=== PATIENT | female | born 1950 | race Caucasian/White ===

== ENCOUNTER → 2024-03-31 10:24 | Outpatient (REF) | payer OTHER, SELFPAY | LOC: HWWDC 10:24 | PROVIDERS: ATTENDING PHYSICIAN Family Medicine | DX: Z12.31 Encounter for screening mammogram for malignant neoplasm of breast (principal) | CPT/HCPCS: 77063; 77067 ==

== ENCOUNTER → 2024-08-03 12:27 | Outpatient (REF) | payer OTHER, SELFPAY | LOC: RAD 12:27 | PROVIDERS: ATTENDING PHYSICIAN Family Medicine | DX: M25.512 Pain in left shoulder (principal) | CPT/HCPCS: 73030 ==

== ENCOUNTER → 2024-12-14 10:03 | Outpatient (REF) | payer OTHER, SELFPAY | LOC: RAD 10:03 | PROVIDERS: ATTENDING PHYSICIAN Family Medicine | DX: M25.562 Pain in left knee (principal) | CPT/HCPCS: 73564 ==

== ENCOUNTER → 2025-04-01 08:59 | Outpatient (REF) | payer OTHER, SELFPAY | LOC: HWWDC 08:59 | PROVIDERS: ATTENDING PHYSICIAN Family Medicine | DX: Z12.31 Encounter for screening mammogram for malignant neoplasm of breast (principal) | CPT/HCPCS: 77063; 77067 ==

== ENCOUNTER → 2025-06-23 10:22 | Outpatient (REF) | payer OTHER, SELFPAY | LOC: PAVMRI 10:22 | PROVIDERS: ATTENDING PHYSICIAN Family Medicine | DX: R51.9 Headache, unspecified (principal); R90.89 Other abnormal findings on diagnostic imaging of central nervous system | CPT/HCPCS: 70553; A9575 ==

== ENCOUNTER 2025-06-28 23:56 | Emergency (ER) | payer OTHER, SELFPAY ==
[2025-06-28 23:57] VITALS: BP 192/90
[2025-06-29 00:37] VITALS: BMI 28.9
--- NOTE | 2025-06-29 01:02 | ED.GENMED ---
History of Present Illness
<Nancie Hernandez PA-C - Last Filed: 06/29/25 02:22>
General
Chief Complaint: Facial Problem
Source: patient
Exam Limitations: none
Time Seen by Provider: 06/29/25 00:35
Nursing documentation reviewed up to this point in time: agreed with
History of Present Illness
History of Present Illness:
74-year-old female with past medical history of macular degeneration, cataracts, GERD, hypertension, asthma, presents to ER today with concerns of facial pain and numbness and tingling sensation to the right side of her face for the past few hours.
She has also had right sided eye pain as well. She denies any foreign body. She reports that she was working in the yard earlier but states that there is no eye injury at this time. She describes the pain as burning stinging and feeling like pins
are being poked into her face and eye. She also has a sensation of numbness behind the eye and reports that this extends to the ear on the same side. She has baseline blurry vision with her macular degeneration but states that the past few days,
when she is close to her eye, after 20 minutes, she starts to see black dots but this is only with the eyes closed. She denies any visual field cut. She has had shingles in the past but is also vaccinated against shingles. She took Benadryl with
minimal relief in her symptoms. She reports that cold compresses helped with the pain. She denies any headache,. She has no chest pain or weakness in her body, chest pain, shortness of breath. She denies any flashes of light in her vision or
curtain going down over her vision. She has not had any fevers or chills. She follows with her dance critic every few months for ocular injections.
Past History
<Nancie Hernandez PA-C - Last Filed: 06/29/25 02:22>
Past History
ED Past Medical History: GERD, HTN and Other (Back pain)
ED Past Surgical History: Appendectomy, Gynecological (Hysterectomy), Orthopedic and Other (Hernia repair.)
Social History
Tobacco: Non-smoker
Alcohol: None
Drug: None
Personal:
Living: with family
Employment: Retired
Family History
Family History: Other (Noncontributory)
Review of Systems
<Nancie Hernandez PA-C - Last Filed: 06/29/25 02:22>
Review of Systems
All Other Systems: ROS reviewed and negative except as documented in HPI and ROS
Phy Exam
<CARA Hernandez Last Filed: 06/29/25 02:22>
Physical Exam
Physical Exam:
General: Patient is well appearing and in no acute distress; non-toxic
Skin: Warm and dry, no rashes or lesions
Head: Normocephalic, atraumatic
Eyes: Right sided sclera injection noted with mild periorbital erythema. No dendritic rash. Sclera non-icteric. EOMs intact. Right eye intraocular pressure 17 mmHg. Corneal staining is negative for corneal ulcer/abrasion/dendritic lesions.
Ears: Right auricle non-erythematous free of rash, TM and external auditory canal unremarkable
Cardiac: Regular rate and rhythm, no murmur
Peripheral Vascular: No lower extremity swelling or edema
Pulm: Normal respiratory effort, no wheezes, rales, or rhonchi
Neuro: CN II-XII intact, no focal neurologic deficits. No facial droop. No facial asymmetry. Sensation intact.
Psychiatric: Appropriate mood and affect.
Course
<Nancie Hernandez PA-C - Last Filed: 06/29/25 02:22>
Orders/Labs/Results
Orders:
Orders
06/29/25 00:37
Visual Acuity- Treatment ONCE
06/29/25 01:41
Electrocardiogram (*1) Urgent
Reason for Study: Chest Pain
Electrocardiogram (*1) Urgent
Reason for Study: Chest Pain
Vital Signs
Initial and Last Documented VS:
Initial Vital Signs
Temp Pulse Resp BP Pulse Ox
98.4 F 66 192/90 100
06/28/25 23:57 06/28/25 23:57 06/28/25 23:57 06/28/25 23:57 06/28/25 23:57
Last Documented Vital Signs
Temp Pulse Resp BP Pulse Ox
98.4 F 64 192 97
06/28/25 23:57 06/29/25 01:45 06/29/25 01:45 06/28/25 23:57 06/29/25 01:45
<Blanka Moran DO - Last Filed: 06/29/25 01:58>
Orders/Labs/Results
Orders:
Orders
06/29/25 00:37
Visual Acuity- Treatment ONCE
06/29/25 01:41
Electrocardiogram (*1) Urgent
Reason for Study: Chest Pain
Electrocardiogram (*1) Urgent
Reason for Study: Chest Pain
Vital Signs
Initial and Last Documented VS:
Initial Vital Signs
Temp Pulse Resp BP Pulse Ox
98.4 F 66 192/90 100
06/28/25 23:57 06/28/25 23:57 06/28/25 23:57 06/28/25 23:57 06/28/25 23:57
Last Documented Vital Signs
Temp Pulse Resp BP Pulse Ox
98.4 F 64 192/90 97
06/28/25 23:57 06/29/25 01:45 06/29/25 01:45 06/28/25 23:57 06/29/25 01:45
<Nancie Hernandez PA-C - Last Filed: 06/29/25 02:22>
MDM/Problems Addressed
Differential Diagnosis Includes:
ddx include prodromal shingles, contact dermatitis, bells palsy, TIA/CVA, trigeminal neuralgia
MDM/Problems Addressed:
74-year-old female with past medical history of macular degeneration, cataracts, GERD, hypertension, asthma, presents to ER today with concerns of facial pain and numbness and tingling sensation to the right side of her face for the past few hours.
On physical exam, she is well appearing, in no acute distress, does have smell erythema noted to the right side of her face and periorbital area. No vesicular rash. She does have some scleral erythema noted but her intraocular pressures are normal
and there is no evidence of corneal dendritic lesions. History most concerning for a prodromal shingles presentation. Will start valacyclovir and have her follow-up closely with her family doctor. Of note patient has also had ongoing headaches
none today, as well as that she says in her vision when she is close her eyes that she has been ongoing for 12 months, she had MRI recently and is due to follow-up with her primary regarding findings. Did have episode of chest pain check ECG which
shows no acute ischemic changes. Patient stable for discharge. Patient will follow-up with her dance critic
Chronic conditions affecting care:
migraines, asthma, GERD, htn
<Nancie Hernandez PA-C - Last Filed: 06/29/25 02:22>
*Pulse Oximetry
SaO2: 100
Oxygen Mode of Delivery: Room air
Patient hypoxic: no
*Critical Care Note
Total Time (30-74mins, 75-104mins- exclusive of procedures): Not Applicable
Data Reviewed
Review of Other/Old Records Reveals: Records and Discharge Summary (reviewed discharge summary from 12/03/21 patient seen for diverticulitis)
Source: patient
ED Attending Note
<Nancie Hernandez PA-C - Last Filed: 06/29/25 02:22>
-
Portions of this chart may have been created with voice recognition software.� Occasional wrong word or��sound alike� substitutions may have occurred due to the inherent limitations of voice recognition software.
<Blanka Dean, DO - Last Filed: 06/29/25 01:58>
ED Attending Note
Patient seen and examined by attending physician: Yes
I performed the substantive portion of visit, reviewed & personally made and approve the management plan that is documented in note by myself or PITO.: Yes
I performed a history and physical exam of patient and discussed management with resident, I reviewed resident's note and agree with documented findings and plan of care.: Yes
ED Attending Note:
74-year-old female with history of macular degeneration and cataracts presenting to the emergency department with pain to the right side of her face. Notes symptoms for the past 2 to 3 days. She also reports associated headache. She notes the
pain is burning in quality. Reports history of seeing red and black spots in her eyes, however this has been ongoing, which prompted recent brain MRI on 06/23. Denies any acute visual changes. Denies recent illness. Reports history of herpes
zoster in the past and feels that pain is similar. Also notes on and off chest pain for the past month with indigestion. She has had difficulty getting into see cardiology. Denies active chest pain.
Vital signs on arrival are significant for hypertension. On exam patient is resting comfortably, no acute distress or discomfort. No obvious abnormality to the right side of the face. No rash, no asymmetry. Normal ocular exam as well as ear
exam. Patient's pain sounds consistent with possible prodromal pain from shingles/herpes zoster. I was seen by physician construction management assistant, no dendritic lesions. Patient denying any active visual changes. MRI reviewed from 06/23, some uptake
abnormalities, however appears unchanged from prior MRI. MS seems to be a diagnosis of exclusion so I did discuss results with patient and advised that she follow-up with her primary care doctor. Regarding her present symptoms, we will start her
on Valtrex. Explained that if her rash appears, to either return to the hospital or follow-up with her primary for possible prednisone. Also advised that if ocular symptoms change or she starts to see a rash tracking towards her eye, that she also
return to the hospital. Regarding her intermittent chest pain/indigestion, screening EKG performed, unremarkable. Ultimately feel stable for outpatient cardiology follow-up. Return precautions discussed and patient verbalized understanding
Discharge Plan
Departure
Patient Disposition: Home (Routine Discharge)
Date of Disposition: 06/29/25
Time of Disposition: 02:00
Patient with high blood pressure during this ER visit?: Yes
Condition: Good
Discharge Problem:
Facial paresthesia, Acute right eye pain
Instructions: Neuropathic pain, Shingles, BLOOD PRESSURE
Prescriptions:
New
valacyclovir 500 mg tablet
1,000 mg PO TID 7 Days Qty: 42 0RF
No Action
cetirizine 10 MG tablet
10 mg PO DAILY
Advair Inhaler
2 puff inhalation PRN PRN (Reason: asthma)
albuterol sulfate 2.5 MG/3 ML solution for nebulization
2.5 mg inhalation R Q6HPRN PRN (Reason: SOB/WHEEZING) Qty: 0
Benadryl
2 tab PO PRN PRN (Reason: insomnia)
triamterene-hydrochlorothiazid 1 EACH tablet
1 ea PO DAILY Qty: 0
coenzyme [id number] E [Co Q-10 (with Vit E)] 1 EACH capsule
1 ea PO DAILY
vit C,G-Cf-eehoy-lutein-zeaxan [PreserVision AREDS-2] 1 EACH capsule
1 ea PO BID
albuterol sulfate 1 PUFF HFA aerosol inhaler
1 puff inhalation R Q4HPRN PRN (Reason: SOB/WHEEZING)
acetaminophen 325 MG tablet
650 mg PO Q4HPRN PRN (Reason: mild pain/[place]/temp> 100.4F) 0RF
amoxicillin-pot clavulanate 1 TABLET tablet
1 tab PO Q12 Qty: 16 0RF
Referrals:
Ko Dacosta Jr., DO [Family Provider, Internal Medicine]
Robi Fernandez DO [Active, Cardiology] - Call in 1-3 days for appt
Activity Restrictions/Additional Instructions:
Valacyclovir has been sent to your pharmacy. Please take 1 gram 3 times a day for 7 days.
Please call your dance critic tomorrow to schedule complete ophthalmic exam in the next few days.
Please follow up with your primary regarding the results of your MRI.
PLEASE RETURN TO THE ER SHOULD YOU DEVELOP VISUAL LOSS, VISUAL CHANGES, SHORTNESS OF BREATH, WEAKNESS ON ONE SIDE OF THE BODY VS THE OTHER, SPEECH CHANGES, CONFUSION, FLOATERS, FLASHES OF LIGHT, OR ANY OTHER SIGNS OR SYMPTOMS WORRISOME TO YOU.
Interventions
Interventions:
*Risk Screen - Suicide Last Done: 06/28/25 23:57
*General Assessment Last Done: 06/29/25 00:37
*Neglect/Abuse Screening Last Done: 06/28/25 23:57
*ED- Fall Risk Assessment Last Done: 06/29/25 00:37
*ED COVID-19 Vaccine History Last Done: 06/29/25 00:37
*ED Influenza Vaccine History Last Done: 06/29/25 00:37
*Nursing Disposition Last Done: 06/29/25 02:21
ED- Cardiac Assessment Last Done: 06/29/25 01:30
ED-EENT Assessment Last Done: 06/29/25 01:30
ED- Neurological Assessment Last Done: 06/29/25 01:30
ED- Pulmonary Assessment Last Done: 06/29/25 01:30
ED-Skin Assessment Last Done: 06/29/25 01:30
Discharge Date and Time
Print Language: MALAY
[2025-06-29 02:04] VITALS: BP 155/70
--- NOTE | 2025-06-29 02:18 | EDRN ---
patient normally wears glasses and doesn't have them with her, thomas PA aware that visual acuity done without her glasses.
== END 2025-06-29 02:21 | disposition home or self-care (01) ==
LOC: EMR 23:56
PROVIDERS: EMERGENCY PHYSICIAN Student in an Organized Health Care Education/Training Program; FAMILY PHYSICIAN Family Medicine
DX: R20.2 Paresthesia of skin (principal); H57.11 Ocular pain, right eye; H35.30 Unspecified macular degeneration; I10 Essential (primary) hypertension; J45.909 Unspecified asthma, uncomplicated; R07.9 Chest pain, unspecified
CPT/HCPCS: 99283; 93005

== ENCOUNTER → 2025-07-08 08:27 | Outpatient (REF) | payer OTHER, SELFPAY | LOC: HWRAD 08:27 | PROVIDERS: ATTENDING PHYSICIAN Family Medicine | DX: M85.89 Other specified disorders of bone density and structure, multiple sites (principal); Z13.820 Encounter for screening for osteoporosis; Z78.0 Asymptomatic menopausal state | CPT/HCPCS: 77080 ==